=== PATIENT | male | born 1965 | race Caucasian/White ===

== ENCOUNTER 2019-02-03 22:48 | Observation (INO) | payer MEDICARE, OTHER ==
[2019-02-03] MEDS ORDERED: IPRATROPIUM-ALBUTEROL 3 ML NEB INHALATION STA (22:56)
[2019-02-03] MEDS ORDERED: methylPREDNISolone SOD SUCCI 125 MG/2 ML VIAL IV STA (22:57)
[2019-02-03] MEDS ORDERED: SODIUM CHLORIDE 0.9% 500 ML 500 ML IV STA (22:57)
--- NOTE | 2019-02-03 22:57 | ED ---
SOB HPI - General Stated Complaint: ANAI Time Seen by Provider: 02/03/19 22:56 - History of Present Illness Initial Comments: Neal is a 54 yo M with PMH of wheezing which she has been evaluated by pulmonology, patient doesn't know his formal diagnosis. Patient reports he was in his usual state of health throughout the day but this evening began to have wheezing which progressed throughout the night. Patient and asked his nephew to bring the hospital for further evaluation. Patient denies any chest pain he does report palpitations and feeling as though his airways her closing. Patient denies any history of COPD he reports he is not a smoker and never has been. When asked if he has pulmonary fibrosis patient states that he doesn't know what that means. Patient states that during a previous admission in the hospital he did have to use breathing treatments which helped him. - Related Data Home Medications Medication Instructions Recorded Confirmed Gabapentin [Neurontin] 300 mg PO TID 02/03/19 02/03/19 Lisinopril [Zestril] 20 mg PO DAILY 02/03/19 02/03/19 Omeprazole 20 mg PO BID 02/03/19 02/03/19 traZODone HCL 50 mg PO HS 02/03/19 02/03/19 Allergies Allergy/AdvReac Type Severity Reaction Status Date / Time bee venom protein (honey bee) Allergy Anaphylaxis Verified 02/03/19 23:16 tramadol [From Ultram] Allergy Rash/Hives Verified 02/03/19 23:16 iodine AdvReac Rash/Hives Verified 02/03/19 23:16 Review of Systems ROS Statement: Those systems with pertinent positive or pertinent negative responses have been documented in the HPI. ROS Other: All systems not noted in ROS Statement are negative. General Exam - General Exam Comments Initial Comments: Physical Exam GENERAL: Morbidly obese gentleman in moderate respiratory distress HENT: Normocephalic, Atraumatic. EYES: PERRL, EOMI PULMONARY: Tachypnea, Transmitted upper airway noises with forced expiratory wheezing CARDIOVASCULAR: Tachycardia, regular No Murmurs rubs or gallops Extremities are warm and well perfused, there is no lower extremity edema ABDOMEN: Obese SKIN: Skin is clear with no lesions or rashes and otherwise unremarkable. : Deferred NEUROLOGIC: Patient is alert and oriented x3 Moving all extremities spontaneously MUSCULOSKELETAL: Normal extremities with adequate strength and full range of motion. No lower extremity swelling or edema. No calf tenderness. PSYCHIATRIC: Anxious Course Vital Signs 02/03/19 02/03/19 02/03/19 22:54 23:01 23:11 Temperature 98.6 F Pulse Rate 136 H 103 H 108 H Respiratory 19 30 H Rate Blood Pressure 145/128 O2 Sat by Pulse 99 Oximetry 02/04/19 04:01 Temperature 98.9 F Pulse Rate 97 Respiratory 19 Rate Blood Pressure 139/68 O2 Sat by Pulse 98 Oximetry Medical Decision Making - Medical Decision Making The patient was seen and evaluated history was obtained from patient and review of medical record This is a 54-year-old nonsmoker who reports that he has occasional wheezing who presents today for foreign have hours of wheezing Evaluation the patient is tachypneic and tachycardic he has forced expiratory wheezing no inspiratory wheezing no crackles no Rales Labs and imaging was ordered Chest x-ray was unremarkable aside from poor ventilation Labs with no significant abnormalities mild leukocytosis Patient's respiratory rate and breathing improved after a single DuoNeb. Patient resting comfortably. Patient repeatedly asking for pain medication versus chronic back pain. PE study was ordered for evaluation of tachycardia and hypoxia - no acute PE, no evidence of pneumonia Re-evaluated the patient, patient is sleeping comfortably, no wheezing, no stridor I woke the patient to discuss results, patient then began to have forced expiratory wheezing. Patient stating that he is not comfortable going home at this time. Given that patient had persistent wheezing and does not feel comfortable with plan for discharge home we will place the patient observation for further evaluation. - Lab Data Result diagrams: 02/03/19 22:54 02/03/19 22:54 Lab Results 02/03/19 02/03/19 02/03/19 Range/Units 22:45 22:54 22:54 WBC 11.8 H (3.8-10.6) k/uL RBC 4.99 (4.30-5.90) m/uL Hgb 14.8 (13.0-17.5) gm/dL Hct 44.8 (39.0-53.0) % MCV 89.9 (80.0-100.0) fL MCH 29.7 (25.0-35.0) pg MCHC 33.1 (31.0-37.0) g/dL RDW 14.7 (11.5-15.5) % Plt Count 288 (150-450) k/uL Neutrophils % 61 % Lymphocytes % 29 % Monocytes % 6 % Eosinophils % 3 % Basophils % 1 % Neutrophils # 7.2 (1.3-7.7) k/uL Lymphocytes # 3.4 (1.0-4.8) k/uL Monocytes # 0.7 (0-1.0) k/uL Eosinophils # 0.3 (0-0.7) k/uL Basophils # 0.1 (0-0.2) k/uL PT (9.0-12.0) sec INR (<1.2) APTT (22.0-30.0) sec Sodium 139 (137-145) mmol/L Potassium 4.6 (3.5-5.1) mmol/L Chloride 107 (98-107) mmol/L Carbon Dioxide 20 L (22-30) mmol/L Anion Gap 12 mmol/L BUN 18 (9-20) mg/dL Creatinine 1.00 (0.66-1.25) mg/dL Est GFR (CKD-EPI)AfAm >90 (>60 ml/min/1.73 sqM) Est GFR (CKD-EPI)NonAf 84 (>60 ml/min/1.73 sqM) Glucose 136 H (74-99) mg/dL Calcium 9.6 (8.4-10.2) mg/dL Magnesium 2.1 (1.6-2.3) mg/dL Total Bilirubin 0.7 (0.2-1.3) mg/dL AST 23 (17-59) U/L ALT 31 (21-72) U/L Alkaline Phosphatase 75 (38-126) U/L Troponin I (0.000-0.034) ng/mL NT-Pro-B Natriuret Pep pg/mL Total Protein 7.4 (6.3-8.2) g/dL Albumin 4.5 (3.5-5.0) g/dL Lipase 106 (23-300) U/L 02/03/19 02/03/19 02/03/19 Range/Units 22:54 22:54 22:54 WBC (3.8-10.6) k/uL RBC (4.30-5.90) m/uL Hgb (13.0-17.5) gm/dL Hct (39.0-53.0) % MCV (80.0-100.0) fL MCH (25.0-35.0) pg MCHC (31.0-37.0) g/dL RDW (11.5-15.5) % Plt Count (150-450) k/uL Neutrophils % % Lymphocytes % % Monocytes % % Eosinophils % % Basophils % % Neutrophils # (1.3-7.7) k/uL Lymphocytes # (1.0-4.8) k/uL Monocytes # (0-1.0) k/uL Eosinophils # (0-0.7) k/uL Basophils # (0-0.2) k/uL PT 9.3 (9.0-12.0) sec INR 0.8 (<1.2) APTT 25.0 (22.0-30.0) sec Sodium (137-145) mmol/L Potassium (3.5-5.1) mmol/L Chloride (98-107) mmol/L Carbon Dioxide (22-30) mmol/L Anion Gap mmol/L BUN (9-20) mg/dL Creatinine (0.66-1.25) mg/dL Est GFR (CKD-EPI)AfAm (>60 ml/min/1.73 sqM) Est GFR (CKD-EPI)NonAf (>60 ml/min/1.73 sqM) Glucose (74-99) mg/dL Calcium (8.4-10.2) mg/dL Magnesium (1.6-2.3) mg/dL Total Bilirubin (0.2-1.3) mg/dL AST (17-59) U/L ALT (21-72) U/L Alkaline Phosphatase (38-126) U/L Troponin I <0.012 (0.000-0.034) ng/mL NT-Pro-B Natriuret Pep 60 pg/mL Total Protein (6.3-8.2) g/dL Albumin (3.5-5.0) g/dL Lipase (23-300) U/L Disposition Clinical Impression: Wheezing Disposition: [facility] Condition: Stable
[2019-02-03 23:19] LABS: ALT 31 U/L (21-72); AST 23 U/L (17-59); Albumin 4.5 g/dL (3.5-5.0); Alkaline Phosphatase 75 U/L (38-126); Anion Gap 12 mmol/L; Blood Urea Nitrogen 18 mg/dL (9-20); Calcium 9.6 mg/dL (8.4-10.2); Carbon Dioxide 20 mmol/L (22-30); Chloride 107 mmol/L (98-107); Glucose 136 mg/dL (74-99); Magnesium 2.1 mg/dL (1.6-2.3); Potassium 4.6 mmol/L (3.5-5.1); Sodium 139 mmol/L (137-145); Total Bilirubin 0.7 mg/dL (0.2-1.3); Total Protein 7.4 g/dL (6.3-8.2)
[2019-02-03 23:21] LABS: INR 0.8 (<1.2); Prothrombin Time 9.3 sec (9.0-12.0)
[2019-02-03 23:35] LABS: Basophils # (A) 0.1 k/uL (0-0.2); Basophils % (A) 1 %; Eosinophils # (A) 0.3 k/uL (0-0.7); Eosinophils % (A) 3 %; HCT 44.8 % (39.0-53.0); HGB 14.8 gm/dL (13.0-17.5); Lymphocytes # (A) 3.4 k/uL (1.0-4.8); Lymphocytes % (A) 29 %; MCH 29.7 pg (25.0-35.0); MCHC 33.1 g/dL (31.0-37.0); MCV 89.9 fL (80.0-100.0); Mean Platelet Volume 6.9; Monocytes # (A) 0.7 k/uL (0-1.0); Monocytes % (A) 6 %; Neutrophils # (A) 7.2 k/uL (1.3-7.7); Neutrophils % (A) 61 %; Platelet Count 288 k/uL (150-450); RBC 4.99 m/uL (4.30-5.90); RDW 14.7 % (11.5-15.5); WBC 11.8 k/uL (3.8-10.6)
--- NOTE | 2019-02-03 23:46 | XR ---
EXAM: XR Chest, 1 View CLINICAL HISTORY: Difficulty breathing TECHNIQUE: Frontal view of the chest. COMPARISON: No relevant prior studies available. FINDINGS: Lungs: Nonspecific retrocardiac opacity. Hypoventilatory lungs. Pleural space: Unremarkable. No pneumothorax. Heart: Apparent enlargement of the cardiomediastinal silhouette is likely in part due to low lung volumes. Mediastinum: See above. Bones/joints: No acute osseous abnormality. IMPRESSION: Hypoventilatory lungs. Nonspecific retrocardiac opacity may represent atelectasis or an infectious or inflammatory process.
--- NOTE | 2019-02-04 01:44 | CT ---
EXAM: CT Angiography Chest With Intravenous Contrast CLINICAL HISTORY: Pain TECHNIQUE: Axial computed tomographic angiography images of the chest with intravenous contrast using pulmonary embolism protocol. CTDI is 0.242, 0. 242, 3.9, 3.94, 24.2 mGy and DLP is 1107.1 mGy-cm. This CT exam was performed using one or more of the following dose reduction techniques: automated exposure control, adjustment of the mA and/or kV according to patient size, and/or use of iterative reconstruction technique. MIP reconstructed images were created and reviewed. COMPARISON: No relevant prior studies available. FINDINGS: Artifacts: Motion. Pulmonary arteries: No central pulmonary embolus. Aorta: No acute findings. No thoracic aortic aneurysm. Lungs: Unremarkable. No mass. No consolidation. Pleural space: Unremarkable. No significant effusion. No pneumothorax. Heart: Unremarkable. No cardiomegaly. No significant pericardial effusion. Mediastinum: Small hiatal hernia. Bones/joints: Mild angulation of bilateral anterior ribs is compatible with age indeterminate nondisplaced fractures. No acute displaced rib fractures are identified. Degenerative changes of the spine. Soft tissues: Unremarkable. Lymph nodes: Unremarkable. No enlarged lymph nodes. IMPRESSION: No central pulmonary embolus.
[2019-02-04 07:03] VITALS: RESP 16
[2019-02-04 07:41] VITALS: BP 178/74; TEMP 97.8
[2019-02-04] MEDS ORDERED: HYDROcodone/APAP 5-325MG 1 EACH TAB PO PRN (08:33)
[2019-02-04] MEDS ORDERED: ACETAMINOPHEN TAB 325 MG TAB PO PRN (08:34)
[2019-02-04] MEDS: IPRATROPIUM-ALBUTEROL 3 ML NEB INHALATION PRN ×2 (08:41→12:17)
[2019-02-04 08:42] VITALS: BMI 41.8
[2019-02-04] MEDS ORDERED: predniSONE 20 MG TAB PO SCH (09:00)
[2019-02-04 12:20] VITALS: PULSE 104
--- NOTE | 2019-02-04 12:47 | P.HPIM ---
History of Present Illness 44-year-old male apparently had history of COPD never smoked came in with compensative shortness of breath. Patient was admitted for COPD exacerbation. Patient normally follows with the physician at [facility] and was recent ly discharged from him on hospital. As per the patient patient is a quite a bit short of breath and the patient is to Although I believe that is subjective patient does have good air entry bilateral lung horn lungs are really clear saturating well upon ablation. I do not see any clinical evidence of COPD I do not see any evidence of bronchitis either clinically or radiologically I do not believe patient will benefit from systemic steroids will give him as needed albuterol. Patient may have anxiety disorder are psychosomatic is him. Patient apparently was complaining complaining about multiple other specific complaints which he denied to me. Denied any chest pain to me. any fever chills patient occasionally coughs brings up minimal whitish phlegm and now he coughs.the patient is saturating well and vitals are stable as an outpatient patient will be discharged will discharge him on albuterol , patient will not benefit from any systemic steroids as I do not believe he has COPD or asthma exacerbation at this time.patient was asked to closely follow up with primary care physician Review of Systems REVIEW OF SYSTEMS: CONSTITUTIONAL: No fever, no malaise, no fatigue. HEENT: No recent visual problems or hearing problems. Denied any sore throat. CARDIOVASCULAR: No chest pain, orthopnea, PND, no palpitations, no syncope. PULMONARY: no hemoptysis. GASTROINTESTINAL: No diarrhea, no nausea, no vomiting, no abdominal pain. NEUROLOGICAL: No headaches, no weakness, no numbness. HEMATOLOGICAL: Denies any bleeding or petechiae. GENITOURINARY: Denies any burning micturition, frequency, or urgency. MUSCULOSKELETAL/RHEUMATOLOGICAL: Denies any joint pain, swelling, or any muscle pain. ENDOCRINE: Denies any polyuria or polydipsia. The rest of the 14-point review of systems is negative. Past Medical History Past Medical History: No Reported History History of Any Multi-Drug Resistant Organisms: None Reported Additional Past Surgical History / Comment(s): IVC filter placed Past Psychological History: No Psychological Hx Reported Smoking Status: Never smoker Past Alcohol Use History: None Reported Past Drug Use History: None Reported Medications and Allergies Home Medications Medication Instructions Recorded Confirmed Type Gabapentin [Neurontin] 300 mg PO TID 02/03/19 02/03/19 History Lisinopril [Zestril] 20 mg PO DAILY 02/03/19 02/03/19 History Omeprazole 20 mg PO BID 02/03/19 02/03/19 History traZODone HCL 50 mg PO HS 02/03/19 02/03/19 History Albuterol Inhaler [Ventolin Hfa 1 - 2 puff INHALATION Q6HR PRN #1 02/04/19 Rx Inhaler] inhaler Allergies Allergy/AdvReac Type Severity Reaction Status Date / Time bee venom protein (honey bee) Allergy Anaphylaxis Verified 02/03/19 23:16 tramadol [From Ultram] Allergy Rash/Hives Verified 02/03/19 23:16 iodine AdvReac Rash/Hives Verified 02/03/19 23:16 Physical Exam Vitals: Vital Signs Temp Pulse Pulse Resp BP BP Pulse Ox 02/04/19 12:32 104 H 02/04/19 12:18 104 H 02/04/19 08:57 100 02/04/19 08:42 100 02/04/19 07:26 97.8 F 80 178/74 95 02/04/19 07:00 97.5 F L 84 16 152/79 02/04/19 04:01 98.9 F 97 19 139/68 98 02/03/19 23:11 108 H 02/03/19 23:01 103 H 30 H 02/03/19 22:54 98.6 F 136 H 19 145/128 99 Intake and Output 02/03/19 02/04/19 02/04/19 22:59 06:59 14:59 Other: Weight 136.078 kg PHYSICAL EXAMINATION: GENERAL: The patient is alert and oriented x3, not in any acute distress. Well developed, well nourished. objective to shortness of breath and patient tries to breathe faster whenever we go into the room. HEENT: Pupils are round and equally reacting to light. EOMI. No scleral icterus. No conjunctival pallor. Normocephalic, atraumatic. No pharyngeal erythema. No thyromegaly. CARDIOVASCULAR: S1 and S2 present. No murmurs, rubs, or gallops. PULMONARY: Chest is clear to auscultation, no wheezing or crackles. ABDOMEN: Soft, nontender, nondistended, normoactive bowel sounds. No palpable organomegaly. MUSCULOSKELETAL: No joint swelling or deformity. EXTREMITIES: No cyanosis, clubbing, or pedal edema. NEUROLOGICAL: Gross neurological examination did not reveal any focal deficits. SKIN: No rashes. Results CBC & Chem 7: 02/03/19 22:54 02/03/19 22:54 Labs: Abnormal Lab Results - Last 24 Hours (Table) 02/03/19 02/03/19 Range/Units 22:54 22:54 WBC 11.8 H (3.8-10.6) k/uL Carbon Dioxide 20 L (22-30) mmol/L Glucose 136 H (74-99) mg/dL Thrombosis Risk Factor Assmnt - Choose All That Apply Each Factor Represents 1 point: Age 41-60 years Thrombosis Risk Factor Assessment Total Risk Factor Score: 1 Thrombosis Risk Factor Assessment Level: Low Risk Assessment and Plan Plan: -shortness of breath: No evidence of COPD or asthma exacerbation patient's symptoms are secondary to either anxiety disorder, psychosomaticthe patient will be discharged on albuterol patient will not benefit from any systemic steroids. Patient will not need to continue further hospitalization. Patient will follow- up with primary care physician as an outpatient. -ruled out pulmonary embolism -history of DVT in the past has an IVC filter not on any anti-correlation at this time -Hypertension -Peripheral neuropathy
--- NOTE | 2019-02-04 12:47 | P.DS ---
Providers Date of admission: 02/04/19 04:12 Attending physician: lAex Diop Primary care physician: Physician Nonstaff Hospital Course: as mentioned in HPI Patient Condition at Discharge: Stable Plan - Discharge Summary New Discharge Prescriptions: New Albuterol Inhaler [Ventolin Hfa Inhaler] 1 - 2 puff INHALATION Q6HR PRN #1 inhaler PRN Reason: Shortness Of Breath Or Wheezing No Action traZODone HCL 50 mg PO HS Lisinopril [Zestril] 20 mg PO DAILY Gabapentin [Neurontin] 300 mg PO TID Omeprazole 20 mg PO BID Discharge Medication List Gabapentin [Neurontin] 300 mg PO TID 02/03/19 [History] Lisinopril [Zestril] 20 mg PO DAILY 02/03/19 [History] Omeprazole 20 mg PO BID 02/03/19 [History] traZODone HCL 50 mg PO HS 02/03/19 [History] Albuterol Inhaler [Ventolin Hfa Inhaler] 1 - 2 puff INHALATION Q6HR PRN #1 inhaler 02/04/19 [Rx] Follow up Appointment(s)/Referral(s): Nonstaff,Physician [Primary Care Provider] - 3 Days Patient Instructions/Handouts: Wheezing (ED) Care Plan Goals (MU): follow-up with Primary care provider in 1-3 days. Discharge Disposition: HOME SELF-CARE
[2019-02-04] MEDS ORDERED: GABAPENTIN 300 MG CAP PO SCH (16:00)
[2019-02-04] MEDS ORDERED: PANTOPRAZOLE 40 MG TABLET PO SCH (21:00)
[2019-02-04] MEDS ORDERED: traZODone HCL 50 MG TAB PO SCH (21:00)
[2019-02-05] MEDS ORDERED: LISINOPRIL 20 MG TAB PO SCH (09:00)
== END 2019-02-04 14:08 | disposition home or self-care (01) ==
LOC: EC 22:48 → 4SSUR 02-04 04:12
PROVIDERS: ADMIT Hospitalist; ATTEND Hospitalist
DX: R06.02 Shortness of breath (principal); R00.0 Tachycardia, unspecified; R09.02 Hypoxemia; I10 Essential (primary) hypertension; G62.9 Polyneuropathy, unspecified; E66.01 Morbid (severe) obesity due to excess calories; Z68.41 Body mass index [BMI] 40.0-44.9, adult; G89.29 Other chronic pain; M54.9 Dorsalgia, unspecified; Z79.899 Other long term (current) drug therapy; Z91.030 Bee allergy status; Z88.5 Allergy status to narcotic agent; Z91.048 Other nonmedicinal substance allergy status; Z95.828 Presence of other vascular implants and grafts; Z86.718 Personal history of other venous thrombosis and embolism
CPT/HCPCS: 96361; 96374; 99285; 36415; 94640 ×3; 93005; 83880; 80053; 83690; 83735; 84484; 85025; 85610; 85730; 71045; 71275; G0378; J2930; J7512; Q9967